=== PATIENT | female | born 1970 | race Two or more races ===

== ENCOUNTER 2020-08-05 15:00 | Emergency (ER) | payer OTHER ==
[~2020-08-05] VITALS: Ht 175.3 cm; Wt 113.6 kg
[2020-08-05 15:24] VITALS: BP 130/74
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
[2020-08-05] MEDS ORDERED: CYCL10TA2 PO (16:54)
[2020-08-05] MEDS ORDERED: NAPR-514 PO (16:54)
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
== END 2020-08-05 17:21 | disposition home or self-care (01) ==
LOC: ER 15:00
DX: S13.9XXA Sprain of joints and ligaments of unspecified parts of neck, initial encounter (principal); M54.6 Pain in thoracic spine; M54.5 Low back pain; V49.49XA Driver injured in collision with other motor vehicles in traffic accident, initial encounter; Y93.89 Activity, other specified; Y92.488 Other paved roadways as the place of occurrence of the external cause; Y99.8 Other external cause status
CPT/HCPCS: 72125; 72128; 72131; 99285-25